=== PATIENT | female | born 2000 | race Caucasian/White ===

== ENCOUNTER 2021-02-19 05:29 | Outpatient (RCR) | payer OTHER ==
[~2021-02-19] VITALS: Ht 175.3 cm; Wt 56.4 kg
[~2021-02-19 05:29] MED LIST: [UNRECOGNIZED DRUG - OTHER] PO
== END 2021-02-19 10:29 | disposition home or self-care (01) ==
LOC: PREOP 05:29
PROVIDERS: ATTEND Otolaryngology Otolaryngology/Facial Plastic Surgery
DX: Z01.812 Encounter for preprocedural laboratory examination (principal); J35.3 Hypertrophy of tonsils with hypertrophy of adenoids; Z20.822 Contact with and (suspected) exposure to COVID-19
CPT/HCPCS: 87635

== ENCOUNTER 2021-02-21 05:58 | Day surgery (SDC) | payer OTHER ==
[2021-02-21] VITALS (10 sets, daily range): BP systolic 84–124; BP diastolic 40–89
[~2021-02-21] VITALS: Ht 175.3 cm; Wt 56.4 kg
[2021-02-21] MEDS ORDERED: LACTATED RINGERS 1,000 ML IV PRN (06:15)
[2021-02-21 06:49] LABS: BASOPHILS % (AUTO) 0 % (0-10); EOSINOPHILS # (AUTO) 0.1 10^3/uL (0.0-0.3); EOSINOPHILS % (AUTO) 2 % (0-10); HEMATOCRIT 34 % (35-52); LYMPHOCYTES # (AUTO) 2.6 10^3/uL (1.0-4.0); LYMPHOCYTES % (AUTO) 43 % (12-44); MEAN CORPUSCULAR HEMOGLOBIN 29 pg (25-34); MEAN CORPUSCULAR HGB CONC 33 g/dL (32-36); MEAN CORPUSCULAR VOLUME 89 fL (80-99); MEAN PLATELET VOLUME 10.5 fL (9.0-12.2); MONOCYTES # (AUTO) 0.5 10^3/uL (0.0-1.0); MONOCYTES % (AUTO) 9 % (0-12); NEUTROPHILS # (AUTO) 2.8 10^3/uL (1.8-7.8); NEUTROPHILS % (AUTO) 46 % (42-75); PLATELET COUNT 281 10^3/uL (130-400)
--- NOTE | 2021-02-21 07:04 | Progress Note-Pre Operative ---
Pre-Operative Progress Note H&P Reviewed The H&P was reviewed, patient examined and no changes noted. Date Seen by Provider: Feb 21, 2021 Time Seen by Provider: 07:00 Date H&P Reviewed: Feb 21, 2021 Time H&P Reviewed: 07:00 Pre-Operative Diagnosis: Rec Tons/ Tonsillar Hypertrophy BERKLEY MULTANI MD Feb 21, 2021 07:04
[2021-02-21] MEDS ORDERED: ONDANSETRON 4 MG/2 ML (SDV) Z0FRAN ONE (07:09)
[2021-02-21] MEDS ORDERED: LIDOCAINE PF 2% 5 ML (XYLOCAINE) VIAL ONE (07:09)
[2021-02-21] MEDS ORDERED: proPOfol 200 MG/20 ML (DIPRIVAN) VIAL IV ONE (07:09)
[2021-02-21] MEDS ORDERED: MIDAZOLAM 2 MG/2 ML (VERSED) VIAL ONE (07:14)
[2021-02-21] MEDS ORDERED: fentaNYL INJ 100 MCG/2 ML AMP ONE (07:14)
[2021-02-21] MEDS ORDERED: SEVOFLURANE (ULTANE) 15 ML INHAL SOLN ONE (07:16)
--- NOTE | 2021-02-21 08:03 | Progress Note-Post Operative ---
Post-Operative Progess Note Surgeon (s)/[facility] (s) Surgeon BERKLEY MULTANI MD [facility] n/a Pre-Operative Diagnosis Rec Tons/ Tonsillar Hypertrophy Post-Operative Diagnosis same Post-Op Procedure Note Date of Procedure: Feb 21, 2021 Name of Procedure Performed: Tonsillectomy Description & Findings Description and Findings: n/a Anesthesia Type get Estimated Blood Loss minimal Packing none. Specimen(s) collected/removed tonsils BERKLEY MULTANI MD Feb 21, 2021 08:03
--- NOTE | 2021-02-21 08:10 | Anesthesia-General Post-Op ---
General Patient Condition Mental Status/LOC: Same as Preop Cardiovascular: Satisfactory Nausea/Vomiting: Absent Respiratory: Satisfactory Pain: Controlled Complications: Absent Post Op Complications Complications None Follow Up Care/Instructions Patient Instructions None needed. Anesthesia/Patient Condition Patient Condition Patient is doing well, no complaints, stable vital signs, no apparent adverse anesthesia problems. No complications reported per nursing. SAMUEL GENAO CRNA Feb 21, 2021 08:10
[2021-02-21] MEDS ORDERED: NS IV 1000 ML 1,000 ML IV SCH (08:15)
[2021-02-21] MEDS ORDERED: ONDANSETRON 4 MG/2 ML (SDV) Z0FRAN IVP PRN (08:15)
[2021-02-21] MEDS ORDERED: morphine INJ 10 MG/ML 1ML (SYR OR VIAL) IVP ONE (08:15)
[2021-02-21] MEDS ORDERED: HYDROcodone/APAP 7.5MG-325 MG/15 ML (LORTAB) UDC PO PRN (08:15)
[2021-02-21] MEDS ORDERED: fentaNYL INJ 100 MCG/2 ML AMP IVP ONE (08:15)
[2021-02-21] MEDS ORDERED: APAP 325 MG/10.15 ML LIQ (TYLENOL) UDC PO PRN (08:15)
[2021-02-21] MEDS ORDERED: MEPERIDINE (DEMEROL) INJ 50 MG/ML IVP ONE (08:15)
[2021-02-21] MEDS ORDERED: HYDR15SO8 PO (09:39)
[2021-02-21] MEDS ORDERED: TETRACAINESUCKERS MT (09:39)
[2021-02-21] MEDS ORDERED: AZIT200S47 PO (09:39)
[2021-02-21] MEDS ORDERED: DEXAINTSOL PO (09:39)
== END 2021-02-21 10:50 | disposition home or self-care (01) ==
LOC: SDC 05:58
PROVIDERS: ATTEND Otolaryngology Otolaryngology/Facial Plastic Surgery
DX: J35.01 Chronic tonsillitis (principal); L04.0 Acute lymphadenitis of face, head and neck
CPT/HCPCS: 36415; 84703; 85025; 87081